=== PATIENT | male | born 1985 | race Caucasian/White ===

== ENCOUNTER 2020-02-19 08:32 | Emergency (ER) | payer OTHER, BC ==
[~2020-02-19] VITALS: Ht 175.3 cm; Wt 73.0 kg
[2020-02-19] MEDS ORDERED: IBUPROFEN 600MG TABLET PO ONE (09:00)
[2020-02-19 10:00] VITALS: BP 133/88
== END 2020-02-19 10:06 | disposition home or self-care (01) ==
LOC: ER 09:03
DX: S46.911A Strain of unspecified muscle, fascia and tendon at shoulder and upper arm level, right arm, initial encounter (principal); R07.89 Other chest pain; V49.49XA Driver injured in collision with other motor vehicles in traffic accident, initial encounter; Y93.89 Activity, other specified; Y92.488 Other paved roadways as the place of occurrence of the external cause
CPT/HCPCS: 71045; 73030; 93005; 99284